=== PATIENT | male | born 1970 | race Caucasian/White ===

== ENCOUNTER 2021-11-01 15:32 | Emergency (ER) | payer OTHER ==
[~2021-11-01 15:32] MED LIST: BACTRIM DS TAB1 EACH PO; ZPAK PO
[2021-11-01] MEDS ORDERED: NAPROXEN500 MG PO (16:41)
== END 2021-11-01 17:07 | disposition home or self-care (01) ==
LOC: FER 15:32
DX: M77.8 Other enthesopathies, not elsewhere classified (principal)
CPT/HCPCS: 73030; J1885

== ENCOUNTER 2021-12-18 18:01 | Emergency (ER) | payer OTHER ==
[~2021-12-18 18:01] MED LIST changes: +NAPROXEN500 MG PO
[2021-12-18] MEDS ORDERED: CEPHALEXIN500 MG PO (21:44)
== END 2021-12-18 21:12 | disposition home or self-care (01) ==
LOC: FER 18:01
DX: S61.216A Laceration without foreign body of right little finger without damage to nail, initial encounter (principal); Z23 Encounter for immunization; W45.8XXA Other foreign body or object entering through skin, initial encounter; Y92.009 Unspecified place in unspecified non-institutional (private) residence as the place of occurrence of the external cause
CPT/HCPCS: 90471; 90715; 99282

== ENCOUNTER → 2022-04-10 | Day surgery (SDC) | payer OTHER ==
[~2022-04-10] VITALS: Ht 172.7 cm; Wt 72.6 kg
[~2022-04-10] MED LIST changes: +CEPHALEXIN500 MG PO; +OMEPRAZOLE40 MG PO; +PRINIVIL20 MG PO
[2022-04-10 10:38] LABS: HCT 46.7 % (42.0-52.0); HGB 15.8 g/dl (13.2-18.0); MCH 29.7 pg (25.0-31.0); MCHC 33.8 g/dL (32.0-36.0); MCV 87.8 fL (78.0-100.0); MPV 10.1 fL (6.0-9.5); RBC 5.32 M/uL (4.70-6.00); RDW 13.5 % (11.5-14.0); WBC 15.1 K/uL (4.0-10.5)
[2022-04-10 10:56] LABS: ALBUMIN 3.9 g/dL (3.4-5.0); BILIRUBIN - TOTAL 0.9 mg/dL (0.2-1.0); BUN/CREAT RATIO (CALC) 18.1 RATIO; CREATININE 0.83 mg/dL (0.67-1.17); GLOBULIN (CALCULATION) 3.4 g/dL; POTASSIUM 3.8 mmol/L (3.5-5.1); TOTAL PROTEIN 7.3 g/dL (6.4-8.2)
== END | disposition home or self-care (01) ==
LOC: FAS 09:47
PROVIDERS: Surgery
DX: D22.5 Melanocytic nevi of trunk (principal); I10 Essential (primary) hypertension; E03.9 Hypothyroidism, unspecified; Z87.891 Personal history of nicotine dependence
CPT/HCPCS: 36415; 80053; J2250; J2704; J3010; J7120